=== PATIENT | female | born 1980 | race Caucasian/White ===

== ENCOUNTER 2017-06-15 18:00 | Emergency (ER) | payer OTHER ==
--- NOTE | 2017-06-15 18:42 | PDOC ---
Rapid Medical Evaluation Chief Complaint: Injury Time Seen by Provider: 06/15/17 18:39 Medical Evaluation: Allergies Allergy/AdvReac Type Severity Reaction Status Date / Time folic acid Allergy Rash Verified 12/11/13 16:49 Pork/Porcine Containing Allergy Hives Verified 12/11/13 16:45 Products 06/15/17 18:40 I have performed a brief in-person evaluation of this patient. The patient presents with a chief complaint of:R ankle/foot pain s/p fall today Pertinent physical exam findings:minimal swelling to lateral malleolus, able to bear weight I have ordered the following:xray The patient will proceed to the ED for further evaluation. 06/15/17 18:43
[2017-06-15] MEDS ORDERED: IBUPROFEN 400 MG TABLET (FP) PO ONE (18:44)
[2017-06-15 19:06] VITALS: BP 107/67; PULSE 84; TEMP 98.9; BMI 37.7
--- NOTE | 2017-06-15 19:33 | PDOC ---
History of Present Illness - General Chief Complaint: Injury Stated Complaint: ANKLE INJURY Time Seen by Provider: 06/15/17 18:39 History Source: Patient Exam Limitations: No Limitations - History of Present Illness Initial Comments: 06/15/17 19:37 Slipped on wet marble floor at work sustaining inversion type injury to right ankle. Complaints of pain and swelling to the lateral aspect of foot. Denies numbness or tingling to foot. No other injury. Occurred: reports: just prior to arrival, this evening Severity: reports: moderate Pain Location: reports: lower extremity (right ankle ) Method of Injury: Yes: fall Modifying Factors: improves with: cold therapy Past History - Travel Traveled outside of the country in the last 30 days: No Close contact w/someone who was outside of country & ill: No - Past Medical History Allergies/Adverse Reactions: Allergies Allergy/AdvReac Type Severity Reaction Status Date / Time folic acid Allergy Rash Verified 12/11/13 16:49 Pork/Porcine Containing Allergy Hives Verified 12/11/13 16:45 Products Home Medications: Ambulatory Orders NK [No Known Home Medication] 06/15/17 Anemia: No Asthma: Yes (NO MEDS SINCE 2012) Cancer: No Cardiac Disorders: No CVA: No COPD: No CHF: No Dementia: No Diabetes: No GI Disorders: No Disorders: No HTN: No Hypercholesterolemia: No Liver Disease: No Seizures: No Thyroid Disease: No - Surgical History Abdominal Surgery: No Appendectomy: No Cardiac Surgery: No Cholecystectomy: No Lung Surgery: No Neurologic Surgery: No Orthopedic Surgery: No - Suicide/Smoking/Psychosocial Hx Smoking Status: No Smoking History: Never smoked Have you smoked in the past 12 months: No Number of Cigarettes Smoked Daily: 0 Information on smoking cessation initiated: No Hx Alcohol Use: No Drug/Substance Use Hx: No Substance Use Type: None Hx Substance Use Treatment: No Review of Systems - Review of Systems Able to Perform ROS?: Yes Is the patient limited Slovak proficient: Yes Constitutional: Yes: Symptoms Reported, See HPI, Malaise HEENTM: Yes: Symptoms Reported, See HPI Musculoskeletal: Yes: Symptoms Reported, See HPI, Joint Pain, Joint Swelling Neurological: Yes: Symptoms reported All Other Systems: Reviewed and Negative *Physical Exam - Vital Signs Last Vital Signs Temp Pulse Resp BP Pulse Ox 98.9 F 84 18 107/67 99 06/15/17 18:39 06/15/17 18:39 06/15/17 18:39 06/15/17 18:39 06/15/17 18:39 - Physical Exam General Appearance: Yes: Nourished, Appropriately Dressed, Apparent Distress, Mild Distress HEENT: positive: MEENU Neck: positive: Supple. negative: Tender Musculoskeletal: negative: Normal Inspection Extremity: positive: Normal Capillary Refill, Normal Range of Motion, Tender ( mild tenderness to the lateral aspect of right foot, however has no point tenderness to medial or lateral malleolus, no fifth metatarsal or navicular tenderness, negative squeeze test, Achilles is intact, neurovascular intact to toes.), Swelling Integumentary: positive: Normal Color Neurologic: positive: edger tailer II-XII NML intact, Fully Oriented, Normal Response, Motor Strength 5/5 Procedures - Splinting Splint Location: Right: Foot, Ankle Pre-Made Type: aircast Post-Proc Neuro Vasc Exam: normal, unchanged from pre-exam ED Treatment Course - Medications Given in the ED: ED Medications Discontinued Medications Generic Name Dose Route Start Last Admin Trade Name Justen PRN Reason Stop Dose Admin Ibuprofen 800 mg 06/15/17 18:44 06/15/17 19:09 Motrin - PO 06/15/17 18:45 800 mg ONCE ONE Administration Progress Note - Progress Note Progress Note: Right ankle sprain, x-ray negative for fractures or dislocations, Tacos Aircast provided *DC/Admit/Observation/Transfer Diagnosis at time of Disposition: Right ankle sprain Qualifiers: Encounter type: initial encounter Involved ligament of ankle: other ligament Qualified Code(s): S93.491A - Sprain of other ligament of right ankle, initial encounter - Discharge Dispostion Disposition: HOME Condition at time of disposition: Stable Admit: No - Referrals Referrals: Faizan Sim MD [Primary Care Provider] - Robin Schwartz MD [Staff Physician] - - Patient Instructions Printed Discharge Instructions: DI for Ankle Sprain Additional Instructions: Rest, ice to area on and off for 15 minutes 4-6 times a day Avoid heavy lifting or exercise until pain and swelling is resolved or until further directed Keep area highly elevated to reduce swelling Use splints/Tacos wrap as directed Followup with orthopedist in one to 2 days if not improving, if significantly improved may wait one week for followup with orthopedist May use ibuprofen 2-200 mg tablets every 6 hours as needed for pain - Post Discharge Activity Forms/Work/School Notes: Back to Work
[2017-06-15] MEDS ORDERED: IBUPROFEN 600 MG TABLET (FP) PO ONE (19:35)
== END 2017-06-15 19:44 | disposition home or self-care (01) ==
LOC: JERFT 18:00
PROC: 2W3QX1Z Immobilization of Right Lower Leg using Splint (ICD-10-PCS; principal; 2017-06-15)
DX: S93.491A Sprain of other ligament of right ankle, initial encounter (principal); W01.0XXA Fall on same level from slipping, tripping and stumbling without subsequent striking against object, initial encounter; Y93.01 Activity, walking, marching and hiking; Y92.29 Other specified public building as the place of occurrence of the external cause; Y99.0 Civilian activity done for income or pay
CPT/HCPCS: 73610-TC-RT; 73630-TC-RT; 99281-25

== ENCOUNTER 2018-10-03 19:54 | Emergency (ER) | payer OTHER, BC ==
[2018-10-03 20:00] VITALS: BP 136/90; PULSE 88; TEMP 97.9; BMI 36.1
[2018-10-03] MEDS ORDERED: METOCLOPRAMIDE HCL INJECTION 10 MG/2 ML VIAL ONE (20:29)
[2018-10-03] MEDS ORDERED: ACETAMINOPHEN INJECTION 100 ML IVPB ONE (20:29)
--- NOTE | 2018-10-03 20:40 | PDOC ---
Documentation entered by Megan Falcon SCRIBE, acting as scribe for Abner Bennett MD. Abner Bennett MD: This documentation has been prepared by the Terrie youngblood Adrianna, SCRIBE, under my direction and personally reviewed by me in its entirety. I confirm that the documentation accurately reflects all work, treatment, procedures, and medical decision making performed by me. Attending Attestation - Resident Resident Name: Veronica Cordova - [facility] HPI: The patient is a 38 year old female, with a significant PMH of migraines and asthma, who presents to the emergency department today complaining of headache for 5 days. She recently had a spinal procedure (epidural) that required anesthesia, and the anesthesiologist prescribed Fioricet for her headache but it has not provided relief. Patient notes the headache is diffuse, 10/10 in nature, with associated photophobia and phonophobia. She notes it is present at rest, and is exacerbated with positional changes and standing up. Patient endorses significant relief when given Tylenol in the ED. The patient denies chest pain, shortness of breath, and dizziness. Denies fever, chills, nausea, vomit, diarrhea and constipation. Denies dysuria, frequency, urgency and hematuria. Denies vision changes, difficulty ambulating, focal weakness, or paresthesia. Allergies: Folic acid, pork/porcine containing products Past surgical history: None reported Social history: No reported 10/03/18 22:27 - Physicial Exam PE: 10/04/18 01:02 Agree with exam as documented by resident - Medical Decision Making 10/04/18 01:02 Likely 2/2 post lp SCANLON, unlikely intracranial bleeding/pathology analgesia re-eval SCANLON resolved with tx dc routine post-op f/u return instructions for emergent/urgent re-eval
[2018-10-03] MEDS ORDERED: SODIUM CHLORIDE 0.9% 500 ML INFUS.BAG IV ONE (21:59)
[2018-10-03] MEDS ORDERED: ACETAMINOPHEN 1000 MG/100 ML VIAL (NON FORMULARY) IVPB ONE (21:59)
[2018-10-03] MEDS ORDERED: METOCLOPRAMIDE HCL INJECTION 10 MG/2 ML VIAL IVPUSH ONE (21:59)
--- NOTE | 2018-10-03 21:59 | PDOC ---
History of Present Illness - General Chief Complaint: Migraine Headache Stated Complaint: MIGRAINE Time Seen by Provider: 10/03/18 20:06 - History of Present Illness Initial Comments: Grazyna Cordoba is a 38yo woman s/p recent procedure back pain including an epidural (or spinal?) anesthesia who presents with 4 days of headache. She states that she has had the SCANLON since Sunday. The anesthesiologist prescribed Fioricet, which has not improved the pain. She states that it is a 10/10, over her entire head, with associated photophobia and phonophobia. She states that the headache changes with position, worsening when standing up, but she states that it also worsens when laying completely flat. It is located over her entire head. She denies associated nausea or vomiting, reporting that she has been eating and drinking well. She has no neurological symptoms including focal numbness or weakness, vision changes, speech/voice changes, or difficulty walking. She says that she has been "limping' since the procedure but this is unchanged from previously. She denies fevers/chills, congestion or rhinorrhea. On arrival in the ED, she was given 1L IVF, tylenol, and reglan with significant improvement in her headache symptoms. Past History - Past Medical History Allergies/Adverse Reactions: Allergies Allergy/AdvReac Type Severity Reaction Status Date / Time folic acid Allergy Rash Verified 10/03/18 20:14 Pork/Porcine Containing Allergy Hives Verified 10/03/18 20:14 Products Home Medications: Ambulatory Orders NK [No Known Home Medication] 06/15/17 Anemia: No Asthma: Yes (NO MEDS SINCE 2012) Cancer: No Cardiac Disorders: No CVA: No COPD: No CHF: No Dementia: No Diabetes: No GI Disorders: No Disorders: No HTN: No Hypercholesterolemia: No Liver Disease: No Seizures: No Thyroid Disease: No - Surgical History Abdominal Surgery: No Appendectomy: No Cardiac Surgery: No Cholecystectomy: No Lung Surgery: No Neurologic Surgery: No Orthopedic Surgery: No - Immunization History Immunization Up to Date: Yes - Suicide/Smoking/Psychosocial Hx Smoking Status: No Smoking History: Unknown if ever smoked Have you smoked in the past 12 months: No Number of Cigarettes Smoked Daily: 0 Information on smoking cessation initiated: No Hx Alcohol Use: No Drug/Substance Use Hx: No Substance Use Type: None Hx Substance Use Treatment: No Review of Systems - Review of Systems Comments:: General: No fevers, no chills, no weight or appetite change, no malaise HEENT: No changes in vision, no changes in hearing, no congestion, no sore throat. +SCANLON CV: No chest pain, no palpitations, no LE edema Pulm: No SOB, no cough, no wheezing GI: No nausea or vomiting, no change in bowel habits, no melena : No frequency, no urgency, no dysuria Musc: No back pain, no joint swelling, no recent injury Skin: No rash, no lesions, no erythema Endo: No excessive thirst, no heat/cold intolerance Heme: No unusual bruising or bleeding, no swollen glands Neuro: No syncope, no numbness/tingling, no focal weakness Vasc: No claudication Psych: No recent change in mood, no SI or HI *Physical Exam - Vital Signs Last Vital Signs Temp Pulse Resp BP Pulse Ox 97.9 F 88 20 136/90 100 10/03/18 19:56 10/03/18 19:56 10/03/18 19:56 10/03/18 19:56 10/03/18 19:56 - Physical Exam Comments: General: Comfortable, no acute distress. Sitting up, laughing with friends in the room HEENT: Atraumatic. PERRL, EOMI, MMM, voice normal, normal neck ROM, no LAD Cards: RRR, no murmur appreciated Pulm: Comfortable on room air, clear to auscultation bilaterally Abd: Soft, nontender, nondistended Back: No wound, no erythema, no edema, no TTP Ext: Atraumatic. No LE edema. ROM intact. Strength 5/5 and equal bilaterally Vasc: Extremities WWP. Skin: Normal color, no rashes or lesions Neuro: A&Ox3, CN grossly intact, normal speech, motor/sensory grossly intact and symmetric Psych: Mood appropriate to situation Medical Decision Making - Medical Decision Making 10/03/18 21:58 Grazyna Cordoba is a 38yo woman s/p recent procedure back pain including an epidural (or spinal?) anesthesia who presents with 4 days of headache with associated photophobia/phonophobia but no neurological symptoms, fever, sudden onset. - Most likely post-spinal/epidural headache given onset after recent procedure - At the time she was seen, Ms Cordoba had already received 1L IVF, 1g IV acetaminophen, 10mg IV reglan. Reports feeling "95% better" with only a mild left-sided headache currently. - Will give additional 1L IVF and reassess. Will most likely be able to discharge home 10/03/18 22:46 - Ms Cordoba states she "feels like herself again" and feels ready to be discharged home. - Discussed home care, return precautions, follow up at length. She understands and agrees with the plan. Recommending follow up with the doctor that completed the epidural, ideally Sunday. She states she will call to schedule follow up. - Will d/c home. Discussed with Dr Bennett. Veronica Cordova PGY1 *DC/Admit/Observation/Transfer Diagnosis at time of Disposition: Headache, spinal, postoperative - Discharge Dispostion Disposition: HOME Condition at time of disposition: Stable Decision to Admit order: No - Referrals - Patient Instructions Printed Discharge Instructions: DI for Post-Spinal Puncture Headache Additional Instructions: Discharge Instructions: You were seen in the emergency department with a headache after an epidural procedure. Headache is often a complication of this procedure, and it most often resolves with pain control. Your symptoms improved after IV hydration and pain medications. Home Care and Follow Up: - You may use over the counter medications as needed for pain at home. 650- 1000mg acetaminophen (Tylenol) or 600mg ibuprofen (Motrin or Advil) can be used every 6-8 hours. If needed for continued pain, these medications may be alternated every 3-4 hours. For example, if you take ibuprofen at 9am, you may take acetaminophen at noon, ibuprofen at 3pm, etc. - It is strongly recommended that you take ibuprofen with food to help prevent stomach irritation. If you are taking it for more than a day or two, you may consider taking an acid medication such as Pepcid or Xantac, available over the counter, to protect your stomach. This should be taken first thing in the morning 30-60 minutes before any food or medications. - Make sure you are staying very well hydrated. Drink extra fluids, especially water. - Make an appointment to follow up with your regular doctor early next week to make sure you are continuing to recover well - Seek immediate medical care if you have worsening of your symptoms, any neurological problems (eg one-sided weakness or numbness, changes in your speech , changes in your voice, vision or hearing problems), nausea or vomiting, you become dehydrated, or you have any other medical emergency. - Post Discharge Activity
== END 2018-10-03 22:59 | disposition home or self-care (01) ==
LOC: JER 19:54
PROC: 3E033NZ Introduction of Analgesics, Hypnotics, Sedatives into Peripheral Vein, Percutaneous Approach (ICD-10-PCS; principal; 2018-10-03)
PROC: 3E033GC Introduction of Other Therapeutic Substance into Peripheral Vein, Percutaneous Approach (ICD-10-PCS; 2018-10-03)
DX: T88.59XA Other complications of anesthesia, initial encounter (principal); G44.40 Drug-induced headache, not elsewhere classified, not intractable
CPT/HCPCS: 99282-25; J0131